=== PATIENT | female | born 1985 | race African-American/Black ===

== ENCOUNTER 2018-04-12 22:23 | Emergency (ER) | payer OTHER ==
--- NOTE | 2018-04-12 22:58 | EDM.PDOC ---
ED HPI GENERAL MEDICAL PROBLEM - General Chief Complaint: Abdominal Pain Stated Complaint: BLEEDING AT 20 WKS Time Seen by Provider: 04/12/18 22:44 - History of Present Illness INITIAL COMMENTS - FREE TEXT/NARRATIVE: HISTORY AND PHYSICAL: History of present illness: Patient 32-year-old female who states she had her routine TAX EVALUATOR appointment on April 07 with ultrasonography that demonstrated 20 weeks intrauterine at that time this is not available for review who presents after noticed some small bleeding post showering she denies pain nausea vomiting trauma or other concern heart tones on arrival were 165 and regular Review of systems: As per history of present illness and below otherwise all systems reviewed and negative. Past medical history: As per history of present illness and as reviewed below otherwise noncontributory. Surgical history: As per history of present illness and as reviewed below otherwise noncontributory. Social history: No reported history of drug or alcohol abuse. Family history: As per history of present illness and as reviewed below otherwise noncontributory. Physical exam: HEENT: Atraumatic, normocephalic, pupils reactive, negative for conjunctival pallor or scleral icterus, mucous membranes moist, throat clear, neck supple, nontender, trachea midline. Lungs: Clear to auscultation, breath sounds equal bilaterally, chest nontender. Heart: S1S2, regular, negative for clicks, rubs, or JVD. Abdomen: Soft, gravid uterus consistent with dates Negative for masses or hepatosplenomegaly. Negative for costovertebral tenderness. Pelvis: Stable nontender. Genitourinary: Deferred. Rectal: Deferred. Diagnostics: heart tones 165 Therapeutics: None Impression: #1 20 week intrauterine with history of vaginal bleeding Definitive disposition and diagnosis as appropriate pending reevaluation and review of above. Past Medical History - Past Health History Medical/Surgical History: Denies Medical/Surgical History OTR [employer] History: Reports: Social & Family History - Family History Family Medical History: Noncontributory - Tobacco Use Smoking Status *Q: Never Smoker ED ROS GENERAL - Review of Systems Review Of Systems: ROS reveals no pertinent complaints other than HPI. ED EXAM, GENERAL - Physical Exam Exam: See Below (None) Course - Vital Signs Text/Narrative:: Case was discussed with Dr. jay was technical publications manager who requests patient be transferred to labor and delivery where she'll evaluate the patient Last Recorded V/S: Last Vital Signs Temp 36.8 C 04/12/18 22:41 Pulse 72 04/12/18 22:41 Resp 18 04/12/18 22:41 BP 132/73 04/12/18 22:41 Pulse Ox 96 04/12/18 22:41 Departure - Departure Time of Disposition: 22:58 Disposition: Home, Self-Care 01 Condition: Good Clinical Impression: Second trimester , Encounter for medical screening examination - Discharge Information Referrals: PCP,None [Primary Care Provider] -
--- NOTE | 2018-04-13 00:19 | OR ---
SURGEON: Felipa Bird M.D. DATE OF PROCEDURE: CHIEF COMPLAINT: Spotting. HISTORY: This is a 32-year-old, G1, P0. She presents to Labor and Delivery with complaint of spotting this afternoon. Yesterday, she had pain on her left side. This has resolved today. She was in the shower. She saw the spot of bright red blood. However, since that time was wiping, she just has had some pinkish discharge. She states that the last time that she had intercourse was about 4 days ago. She was seen in the emergency room. However, they declined to do a speculum exam, and therefore I asked her to come to Labor and Delivery as I felt that she should be evaluated for vaginitis related to her spotting. She did have documented heart tones in the emergency room. She is currently 20 weeks and 2 days per her reported dating. PHYSICAL EXAMINATION: GENERAL: She is alert and oriented. She is in no acute distress. heart tones are present. ABDOMEN: Soft, gravid, nontender. Fundal height is at the umbilicus. EXTREMITIES: Show trace edema. SPECULUM: Shows a small amount of light pink brownish discharge. No active bleeding from the cervix. Cervical os is closed. GenProbe and Affirm test are obtained. ASSESSMENT AND PLAN: Spotting at 20 weeks' gestation. There is no active bleeding. Cervix is closed. heart tones are present and we will rule out vaginitis; however, continue with pelvic rest and treat as indicated based on results. MARU / GINA /[id number]
== END 2018-04-12 23:00 | disposition home or self-care (01) ==
LOC: MW.ED 22:23
DX: O20.9 Hemorrhage in early pregnancy, unspecified (principal); Z3A.20 20 weeks gestation of pregnancy
CPT/HCPCS: 99283; 99284